=== PATIENT | female | born 1990 | race Two or more races ===

== ENCOUNTER 2022-05-14 08:40 | Outpatient (CLI) | payer OTHER | END 2022-05-14 08:54 | disposition home or self-care (01) | LOC: RX STUDY 08:40 | PROVIDERS: ATTEND Psychiatry & Neurology Neuromuscular Medicine | DX: D25.0 Submucous leiomyoma of uterus (principal); N94.5 Secondary dysmenorrhea; N97.9 Female infertility, unspecified ==